=== PATIENT | female | born 1990 | race Caucasian/White ===

== ENCOUNTER → 2017-03-12 | Day surgery (SDC) | payer BC ==
[2017-03-11 12:29] LABS: BASOPHILS % 0.4 % (0.0-1.0); EOSINOPHILS # (AUTO) 0.2 (0.0-0.4); EOSINOPHILS % 3.4 % (0.0-6.0); HEMATOCRIT 39.8 % (34.2-44.1); HEMOGLOBIN 13.1 g/dL (12.0-16.0); LYMPHOCYTES # (AUTO) 3.1 (1.0-3.2); LYMPHOCYTES % 44.9 % (18.0-39.1); MEAN CORPUSCULAR HEMOGLOBIN 29.7 pg (28-32); MEAN CORPUSCULAR HGB CONC 32.9 g/dL (31-35); MEAN CORPUSCULAR VOLUME 90.2 fL (81-99); MONOCYTES # (AUTO) 0.4 (0.2-0.8); MONOCYTES % 6.3 % (4.4-11.3); NEUTROPHILS # (AUTO) 3.1 (2.1-6.9); NEUTROPHILS % 44.9 % (38.7-80.0); PLATELET COUNT 233 x10e3/uL (140-360); RED BLOOD COUNT 4.41 x10e6/uL (3.6-5.1); RED CELL DISTRIBUTION WIDTH 13.2 % (11.7-14.4)
[2017-03-11 12:48] LABS: ANION GAP 14.5 mmol/L (8-16); BLOOD UREA NITROGEN 19 mg/dL (7-26); BUN/CREATININE RATIO 22 (6-25); CALCIUM 10.4 mg/dL (8.4-10.2); CARBON DIOXIDE 26 mmol/L (22-29); CHLORIDE 107 mmol/L (98-107); CREATININE, SERUM 0.85 mg/dL (0.57-1.11); EST GLOMERULAR FILTRATION RATE > 60 ML/MIN (60-); GLUCOSE 76 mg/dL (74-118); POTASSIUM 5.5 mmol/L (3.5-5.1); SODIUM 142 mmol/L (136-145)
[~2017-03-12] MED LIST: ALLEGRA PO; AMINO ACIDS; BELLADONNA/OPIUM 60 MG SUPP PR ONE; CRANBERRY PO; DEXAMETHASONE SOD PHOS INJ 4 MG/ML VIAL ONE; FENTANYL CITRATE/PF 100MCG/2 ML INJ ONE; IOPAMIDOL 610MG/1ML 300 MG/ML VIAL IV ONE; IOTHALAMATE MEGLUMINE 17.20% 250 ML BTL ONE; KETOROLAC TROMETHAMINE 30 MG/ML VIAL ONE; LEVOFLOXACIN 500MG/D5W 100ML 100 ML IV ONE; LIDOCAINE HCL 2% LOCAL INJ 5 ML SDV VIAL INJ ONE; MIDAZOLAM HCL 2 MG/2 ML VIAL ONE; ONDANSETRON HCL INJ 2 MG/ML VIAL ONE; PRENATAL TABLE1 EAC1 PO; PROPOFOL IV EMULSION 10 MG/ML 20 ML VIAL ONE; SEVOFLURANE INHAL SOLN 250 ML PEN BTL ONE; VALTREX500 MG PO; [UNRECOGNIZED DRUG - OTHER] PO
--- NOTE | 2017-04-25 08:47 | Operative Report ---
DATE OF PROCEDURE: March 12, 2017 PREOPERATIVE DIAGNOSES 1. Vesicoureteric reflux. 2. Microscopic hematuria. 3. Urinary tract infections. POSTOPERATIVE DIAGNOSES 1. Vesicoureteric reflux. 2. Microscopic hematuria. 3. Urinary tract infections. 4. Very minimal cephalad cystocele. OPERATIONS PERFORMED 1. Cystourethroscopy with cystography (separate procedure performed to evaluate for any vesicoureteric reflux). 2. Cystourethroscopy with bilateral ureteral catheterization and retrograde ureteropyelography (separate procedure performed to evaluate the upper tracts in light of the urinary tract infections and microhematuria). 3. Interpretation retrograde ureteropyelography. 4. Interpretation of cystography. 5. Supervision of fluoroscopy. No radiologist present. 6. Pelvic examination under anesthesia. ANESTHESIA: General. COMPLICATIONS: None. CLINICAL SUMMARY: Roby Hua is a 26-year-old woman with the above preoperative diagnoses. When the patient was a child, she underwent a Chris type cross trigonal bilateral ureteral reimplantation at [facility]. The patient is brought to the operating room for evaluation of her urinary tract. She is aware the risks of bleeding, infection, injury to adjacent structures, need for additional procedures, and she elected to proceed. OPERATIVE PROCEDURE IN DETAIL: Informed consent was verified. Roby Hua was properly identified and taken to the operating room, and placed on the cystoscopy table in the supine position. Anesthesia was uneventfully begun. The patient was then carefully and gently repositioned in the dorsal lithotomy position with all pressure points well-padded. Her genitalia were prepared and draped in the usual sterile fashion. The 22.5-[place]oven[place] cystoscope sheath with the obturator in place was atraumatically inserted in the patient's urethra and the bladder was drained. Panendoscopy of the urinary bladder revealed no suspicious mucosal lesions. No tumors. No stones and no diverticula. Normally positioned and configured ureteral orifices were identified. Contrast was injected into the bladder and performing cystography to evaluate her ureteral reimplantation success. Interpretation of cystography. Contrast was instilled via the cystoscope into the patient's bladder. There was no evidence of vesicoureteric reflux. There was no evidence of diverticula. The bladder wall was smooth. A ureteral catheter was used to cannulate each ureter and retrograde ureteropyelogram was performed. This was a rather challenging task given the fact that the patient has had a previous cross trigonal reimplant. Nevertheless, we were successful. Interpretation of retrograde ureteropyelography. Contrast was instilled in a retrograde fashion bilaterally. There were no tumors. No stones and no diverticula. Unobstructed drainage was observed bilaterally fluoroscopically. The right-sided collecting system was definitely dilated in comparison to the left. Nevertheless, unobstructed drainage was observed fluoroscopically. The patient's bladder was then drained. The cystoscope was withdrawn. A pelvis examination under anesthesia revealed a very minimal cystocele of the cephalad most portion of the anterior vaginal wall. No abnormal palpable pelvic masses could be appreciated. The patient was then uneventfully reversed from anesthesia, and taken to the recovery room in stable condition. There no complications to the procedure. The patient tolerated the procedure well. Explicit postoperative instructions were given. Will follow the patient up in the office in approximately 1 month. Job#: [id number] TRISTAN
== END | disposition home or self-care (01) ==
LOC: OR 07:04
PROVIDERS: ATTEND Urology
DX: N13.70 Vesicoureteral-reflux, unspecified (principal); N13.30 Unspecified hydronephrosis; N39.0 Urinary tract infection, site not specified; N81.10 Cystocele, unspecified; Z01.812 Encounter for preprocedural laboratory examination
CPT/HCPCS: 36415 ×2; 52005; 74430; 80048; 81025; 84132; 85025; C1758; J1100; J1885; J1956; J2001; J2250; J2405; Q9958; Q9967

== ENCOUNTER → 2021-07-02 | Outpatient (CLI) | payer OTHER ==
[~2021-07-02] MED LIST changes: -BELLADONNA/OPIUM 60 MG SUPP PR ONE; +D-MANNOSE PO; -DEXAMETHASONE SOD PHOS INJ 4 MG/ML VIAL ONE; -FENTANYL CITRATE/PF 100MCG/2 ML INJ ONE; +FLONASE ALLERG9.9 ML INH; -IOPAMIDOL 610MG/1ML 300 MG/ML VIAL IV ONE; -IOTHALAMATE MEGLUMINE 17.20% 250 ML BTL ONE; -KETOROLAC TROMETHAMINE 30 MG/ML VIAL ONE; -LEVOFLOXACIN 500MG/D5W 100ML 100 ML IV ONE; -LIDOCAINE HCL 2% LOCAL INJ 5 ML SDV VIAL INJ ONE; -MIDAZOLAM HCL 2 MG/2 ML VIAL ONE; +NITROFURANTOIN100 MG PO; -ONDANSETRON HCL INJ 2 MG/ML VIAL ONE; +PROBIOTIC & AC1 EACH PO; -PROPOFOL IV EMULSION 10 MG/ML 20 ML VIAL ONE; -SEVOFLURANE INHAL SOLN 250 ML PEN BTL ONE; +TESTOSTERONE TOP; +[UNRECOGNIZED DRUG - OTHER] PO
== END ==
LOC: US 12:05
PROVIDERS: ATTEND Urology
DX: N13.30 Unspecified hydronephrosis (principal); N39.0 Urinary tract infection, site not specified
CPT/HCPCS: 76770

== ENCOUNTER → 2021-07-08 | Day surgery (SDC) | payer BC, OTHER ==
[2021-07-07 13:46] LABS: BASOPHILS # (AUTO) 0.1 (0.0-0.1); BASOPHILS % 0.5 % (0.0-1.0); EOSINOPHILS # (AUTO) 0.3 (0.0-0.4); EOSINOPHILS % 3.3 % (0.0-6.0); HEMATOCRIT 42.9 % (34.2-44.1); LYMPHOCYTES # (AUTO) 3.1 (1.0-3.2); LYMPHOCYTES % 33.7 % (18.0-39.1); MEAN CORPUSCULAR HEMOGLOBIN 29.3 pg (28-32); MEAN CORPUSCULAR HGB CONC 32.6 g/dL (31-35); MEAN CORPUSCULAR VOLUME 89.7 fL (81-99); MONOCYTES # (AUTO) 0.6 (0.2-0.8); MONOCYTES % 6.9 % (4.4-11.3); NEUTROPHILS # (AUTO) 5.1 (2.1-6.9); NEUTROPHILS % 55.4 % (38.7-80.0); PLATELET COUNT 189 x10e3/uL (140-360); RED BLOOD COUNT 4.78 x10e6/uL (3.6-5.1); RED CELL DISTRIBUTION WIDTH 12.7 % (11.7-14.4)
[2021-07-07 14:11] LABS: ANION GAP 12.2 mmol/L (8-16); CALCIUM 9.5 mg/dL (8.4-10.2); CREATININE, SERUM 0.8 mg/dL (0.57-1.11); POTASSIUM 4.2 mmol/L (3.5-5.1)
[~2021-07-08] MED LIST changes: +B&O 60MG R/S 60 MG SUPP PR ONE; +DEXAMETHASONE SOD PHOS INJ 4 MG/ML SDV ONE; +DIATRIZOATE MEGLUMINE 300 MG/1 ML BTL UR ONE; +FENTANYL CITRATE/PF 100MCG/2 ML INJ ONE; +GENTAMICIN 80MG/NS 100 ML 200 ML IV ONE; +IOHEXOL 300 MG/ML 30ML INFUS..BTL ONE; +KETOROLAC TROMETHAMINE 30 MG/ML VIAL ONE; +LEVOFLOXACIN 500MG/D5W 100ML 100 ML IV ONE; +LIDOCAINE HCL 2% LOCAL INJ 5 ML SDV VIAL INJ ONE; +MIDAZOLAM HCL 2 MG/2 ML VIAL ONE; +ONDANSETRON HCL INJ 2MG/ML 2ML 2 MG/ML VIAL ONE; +POVIDONE IODINE 0.05% 0.05 % ML PO ONE; +PROPOFOL IV EMULSION 10 MG/ML 20 ML VIAL ONE; +SEVOFLURANE INHAL SOLN 250 ML PEN BTL ONE
[2021-07-08 08:48] VITALS: BP 100/57
== END | disposition home or self-care (01) ==
LOC: OR 07:42
PROVIDERS: ATTEND Urology
DX: N39.0 Urinary tract infection, site not specified (principal); N13.30 Unspecified hydronephrosis; N81.6 Rectocele; N81.2 Incomplete uterovaginal prolapse; Z98.890 Other specified postprocedural states; K27.9 Peptic ulcer, site unspecified, unspecified as acute or chronic, without hemorrhage or perforation; M25.551 Pain in right hip; F32.A Depression, unspecified; Z88.0 Allergy status to penicillin; Z88.8 Allergy status to other drugs, medicaments and biological substances; Z91.041 Radiographic dye allergy status; Z91.040 Latex allergy status; Z01.812 Encounter for preprocedural laboratory examination; Z20.822 Contact with and (suspected) exposure to COVID-19; Z85.43 Personal history of malignant neoplasm of ovary
CPT/HCPCS: 36415; 52005; 74420; 78740; 80048; 81025; 85025; C1758; J1100; J1580; J1885; J1956; J2001; J2250; J2405; J2704; J3010; Q9967; U0002

== ENCOUNTER → 2021-10-02 | Outpatient (CLI) | payer OTHER ==
[~2021-10-02] MED LIST changes: -B&O 60MG R/S 60 MG SUPP PR ONE; -DEXAMETHASONE SOD PHOS INJ 4 MG/ML SDV ONE; -DIATRIZOATE MEGLUMINE 300 MG/1 ML BTL UR ONE; -FENTANYL CITRATE/PF 100MCG/2 ML INJ ONE; +FUROSEMIDE INJ 10 MG/ML 4 ML VIAL ONE; -GENTAMICIN 80MG/NS 100 ML 200 ML IV ONE; -IOHEXOL 300 MG/ML 30ML INFUS..BTL ONE; -KETOROLAC TROMETHAMINE 30 MG/ML VIAL ONE; -LEVOFLOXACIN 500MG/D5W 100ML 100 ML IV ONE; -LIDOCAINE HCL 2% LOCAL INJ 5 ML SDV VIAL INJ ONE; -MIDAZOLAM HCL 2 MG/2 ML VIAL ONE; -ONDANSETRON HCL INJ 2MG/ML 2ML 2 MG/ML VIAL ONE; -POVIDONE IODINE 0.05% 0.05 % ML PO ONE; -PROPOFOL IV EMULSION 10 MG/ML 20 ML VIAL ONE; -SEVOFLURANE INHAL SOLN 250 ML PEN BTL ONE
== END ==
LOC: NM 10:01
PROVIDERS: ATTEND Urology
DX: N13.30 Unspecified hydronephrosis (principal)
CPT/HCPCS: 78708; 81025; A9562; J1940